=== PATIENT | male | born 1980 | race Caucasian/White ===

== ENCOUNTER 2017-05-11 23:29 | Emergency (ER) | payer SELFPAY ==
[2017-05-12 00:46] LABS: ABSOLUTE EOSINOPHILS # (AUTO) 0.2 10^3/uL (0.0-0.6); ABSOLUTE LYMPHOCYTES (AUTO) 2.4 10^3/uL (0.5-4.7); ABSOLUTE NEUT (AUTO) 9.3 10^3/uL (1.7-8.2); BASOPHILS % (AUTO) 0.4 % (0-2); EOSINOPHILS % (AUTO) 1.2 % (0-6); HEMATOCRIT 40.4 % (37.9-51.0); HEMOGLOBIN 13.6 g/dL (13.5-17.0); HGB HCT DIFFERENCE 0.4; LYMPHOCYTES % (AUTO) 18.4 % (13-45); MEAN CORPUSCULAR HEMOGLOBIN 30.1 pg (27.0-33.4); MEAN CORPUSCULAR HGB CONC 33.7 g/dL (32.0-36.0); MEAN CORPUSCULAR VOLUME 89 fl (80-97); MONOCYTES % (AUTO) 7.5 % (3-13); RED BLOOD COUNT 4.53 10^6/uL (4.35-5.55); RED CELL DISTRIBUTION WIDTH 13.4 % (11.5-14.0); SEGMENTED NEUTROPHILS % (AUTO) 72.5 % (42-78); WHITE BLOOD COUNT 12.9 10^3/uL (4.0-10.5)
[2017-05-12 01:02] LABS: ALANINE AMINOTRANSFERASE 24 U/L (21-72); ALBUMIN 4.1 g/dL (3.5-5.0); ALKALINE PHOSPHATASE 60 U/L (38-126); ANION GAP 12 (5-19); ASPARTATE AMINO TRANSFERASE 18 U/L (17-59); BILIRUBIN,DIRECT 0.3 mg/dL (0.0-0.4); BILIRUBIN,TOTAL 0.5 mg/dL (0.2-1.3); BLOOD UREA NITROGEN 14 mg/dL (7-20); CALCIUM 9.5 mg/dL (8.4-10.2); CARBON DIOXIDE 26 mmol/L (22-30); CHLORIDE 101 mmol/L (98-107); CREATININE RESULT 0.65 mg/dL (0.52-1.25); GLUCOSE 118 mg/dL (75-110); POTASSIUM 3.9 mmol/L (3.6-5.0); SODIUM 139.1 mmol/L (137-145); TOTAL PROTEIN 7.1 g/dL (6.3-8.2)
[2017-05-12] MEDS ORDERED: MORPHINE SULFATE IR 15 MG TABLET ONE (01:30)
[2017-05-12] MEDS ORDERED: ONDANSETRON 4 MG TAB.RAPDIS ONE (01:40)
--- NOTE | 2017-05-12 01:42 | RADIOLOGY REPORT (SQ) ---
EXAM DESCRIPTION: HAND RIGHT 3 VIEWS COMPLETED DATE/TIME: 05/12/2017 1:09 am REASON FOR STUDY: swelling/redness COMPARISON: None. EXAM PARAMETERS: NUMBER OF VIEWS: Three views. TECHNIQUE: AP, lateral and oblique radiographic images acquired of the right hand. LIMITATIONS: None. FINDINGS: MINERALIZATION: Normal. BONES: No acute fracture or dislocation. No worrisome bone lesions. JOINTS: No effusions. SOFT TISSUES: Moderate swelling and likely 0.2 cm dermal defect in an area of indicated symptomatolog y at the lateral aspect of the right 5th metacarpus. No bone or joint involvement. No radiopaque fo reign body. OTHER: No other significant finding. IMPRESSION: No acute bone or joint abnormality. Known soft tissue defect. TECHNICAL DOCUMENTATION: JOB ID: [id number] [employer]- All Rights Reserved
[2017-05-12] MEDS ORDERED: ONDANSETRON ODT 4 MG TAB (6 TAB/DSPK) PO PRN (02:02)
[2017-05-12] MEDS ORDERED: HYDROCODONE/ACETAMINOPHEN 5-325 MG 6 TAB/DSPK PO PRN (02:02)
[2017-05-12] MEDS ORDERED: MORPHINE SULFATE IR 15 MG TABLET PO ONE (02:02)
[2017-05-12] MEDS ORDERED: CEPHALEXIN 500 MG CAPSULE PO ONE (02:03)
[2017-05-12] MEDS ORDERED: DOXYCYCLINE HYCLATE 100 MG TABLET PO ONE (02:03)
--- NOTE | 2017-05-12 02:06 | ER Document Report ---
ED General - General Chief Complaint: Hand Swelling Stated Complaint: POSSIBLE RIGHT HAND INFECTION Time Seen by Provider: 05/12/17 02:01 Notes: Patient is a 36-year-old male without past medical history who presents with 4 days of progressively worsening erythema and pain to his right hand now spreading into his right forearm. 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 States that he became concerned today when he began to develop nausea, and generalized body aches and generalized fatigue. He has not seen his primary care doctor regarding today's concerns. He has not noted anything seems to improve or worsen his symptoms. He has no history of similar symptoms in the past. He has not had a fever at home. TRAVEL OUTSIDE OF THE [place] IN LAST 30 DAYS: No - Related Data Allergies/Adverse Reactions: codeine [Codeine] Allergy (Severe, Verified 12/13/15 14:51) hallucinating diphenhydramine HCl [From Benadryl] Adverse Reaction (Unknown, Verified 14:51) Hallucinations Past Medical History - General Information source: Patient - Social History Smoking Status: Current Every Day Smoker Frequency of alcohol use: None Drug Abuse: None Lives with: Spouse/Significant other Family History: Arthritis, CAD, Hyperlipidemia, Hypertension, Thyroid Disfunction Patient has suicidal ideation: No Patient has homicidal ideation: No Pulmonary Medical History: Reports: Hx Asthma Renal/ Medical History: Denies: Hx Peritoneal Dialysis Musculoskeltal Medical History: Reports Hx Arthritis, Reports Hx Musculoskeletal Deformity, Reports Hx Musculoskeletal Trauma Psychiatric Medical History: Reports: Hx Depression Traumatic Medical History: Reports: Hx Spine Fracture Past Surgical History: Reports: Hx Neurologic Surgery - NECK FUSION, Hx Orthopedic Surgery - C5 and 6 fusion - Immunizations Hx Diphtheria, Pertussis, Tetanus Vaccination: Yes Review of Systems - Review of Systems Notes: Constitutional: Negative for fever. HENT: Negative for sore throat. Eyes: Negative for visual changes. Cardiovascular: Negative for chest pain. Respiratory: Negative for shortness of breath. Gastrointestinal: Negative for abdominal pain, vomiting or diarrhea. Genitourinary: Negative for dysuria. Musculoskeletal: Negative for back pain. Skin: Positive for rash. Neurological: Negative for headaches, weakness or numbness. 10 point ROS negative except as marked above and in HPI. Physical Exam - Vital signs Vitals: Temp Pulse Resp BP Pulse Ox 97.5 F 68 22 H 121/66 94 05/11/17 23:41 05/11/17 23:41 05/11/17 23:41 05/11/17 23:41 05/11/17 23:41 Interpretation: Normal Notes: PHYSICAL EXAMINATION: GENERAL: Well-appearing, well-nourished and in no acute distress. HEAD: Atraumatic, normocephalic. EYES: Pupils equal round and reactive to light, extraocular movements intact, sclera anicteric, conjunctiva are normal. ENT: nares patent, oropharynx clear without exudates. Moist mucous membranes. NECK: Normal range of motion, supple without lymphadenopathy LUNGS: Breath sounds clear to auscultation bilaterally and equal. No wheezes rales or rhonchi. HEART: Regular rate and rhythm without murmurs ABDOMEN: Soft, nontender, normoactive bowel sounds. No guarding, no rebound. No masses appreciated. EXTREMITIES: Normal range of motion, no pitting or edema. No cyanosis. NEUROLOGICAL: No focal neurological deficits. Moves all extremities spontaneously and on command. PSYCH: Normal mood, normal affect. SKIN: Warm, Dry, normal turgor, there is a circular area of purulent drainage with surrounding erythema over the dorsal aspect of the right hand just superior to the thumb with spreading erythema to the level of the wrist. No axillary lymphadenopathy. Course - Re-evaluation Re-evalutation: 05/12/17 02:03 Patient presents with symptoms most consistent with an acute cellulitis. There was a small pustular component which was incised and drained with expression of approximately 0.25 mL's of purulent material. X-ray does not demonstrate any evidence of retained foreign bodies the area. Vitals within normal limits. Patient does not meet sepsis criteria is overall very well in appearance. Exam and history are not consistent with DVT. Patient will be started on coverage for both staph and strep as well as vibrio species given that wound was likely contaminated with salt water. At this time will discharge with return precautions and follow-up recommendations. Verbal discharge instructions given a the bedside and opportunity for questions given. Medication warnings reviewed. Patient is in agreement with this plan and has verbalized understanding of return precautions and the need for primary care follow-up in the next 24-72 hours. - Vital Signs Vital signs: Temp Pulse Resp BP Pulse Ox 97.8 F 80 20 120/70 96 05/12/17 02:20 05/12/17 02:20 05/12/17 02:20 05/12/17 02:20 05/12/17 02:20 - Laboratory Result Diagrams: 05/12/17 00:35 05/12/17 00:35 Laboratory results interpreted by me: 05/12/17 05/12/17 00:35 00:35 WBC 12.9 H Absolute Neutrophils 9.3 H Glucose 118 H - Diagnostic Test Radiology reviewed: Image reviewed, Reports reviewed Radiology results interpreted by me: 05/12/17 02:04 Right hand x-ray: No retained foreign body Procedures - Incision and Drainage Right Hand Type: Simple Anesthetic type: 1% Lidocaine mL's of anesthetic: 1 Blade size: 11 I&D procedure: Betadine prep applied Incision Method: Incision made by scalpel Amount/type of drainage: 0.25 ml purulent material Discharge - Discharge Clinical Impression: Abscess of right hand Cellulitis Qualifiers: Site of cellulitis: extremity Site of cellulitis of extremity: upper extremity Laterality: right Qualified Code(s): L03.113 - Cellulitis of right upper limb Condition: Good Disposition: HOME, SELF-CARE Additional Instructions: The rash is likely due to infection of your skin. You need to take the antibiotics as prescribed. Do not stop even if the rash goes away until you have completed all the antibiotics. The area of redness was traced out here in the emergency department with a marking pen. You need to return to emergency department if the redness spreads outside of this area by more than 2 cm in any direction. You should also return if you develop fevers with temperature greater than 101, persistent vomiting, worsening pain, or have any other symptoms that are concerning to you. For your pain: Take ibuprofen 600 mg and acetaminophen 1000 mg every 6 hours together as needed for pain. If this does not control your pain you may take 15 mg of oral morphine every 4 hours as needed. Please be very careful about using the oral morphine and only use this for severe pain. Prescriptions: RX: Morphine Sulfate [Morphine Ir 15 mg Tablet] 15 mg PO Q4HP PRN #12 tablet PRN Reason: Cephalexin Monohydrate [Keflex 500 mg Capsule] 500 mg PO QID #40 capsule RX: Doxycycline Hyclate 100 mg PO BID #20 capsule Forms: Return to Work
[2017-05-12 02:35] VITALS: BP 120/70
== END 2017-05-12 02:23 | disposition home or self-care (01) ==
LOC: ER 23:29
PROC: 0H9FXZZ Drainage of Right Hand Skin, External Approach (ICD-10-PCS; principal; 2017-05-11)
DX: L03.113 Cellulitis of right upper limb (principal); L02.511 Cutaneous abscess of right hand; M79.89 Other specified soft tissue disorders; M79.631 Pain in right forearm; R11.0 Nausea; R52 Pain, unspecified; R53.83 Other fatigue; F17.200 Nicotine dependence, unspecified, uncomplicated
CPT/HCPCS: 99284; 36415; 85025; 80053; 73130; 10060; S0119

== ENCOUNTER 2017-05-13 00:53 | Emergency (ER) | payer SELFPAY ==
[2017-05-13] MEDS ORDERED: MORPHINE SULFATE 10 MG/ML INJ IV PRN (01:48)
[2017-05-13] MEDS ORDERED: HYDROMORPHONE HCL INJ/PF 2 MG/ML AMPULE IM ONE (02:28)
--- NOTE | 2017-05-13 02:33 | ER Document Report ---
ED General - General Chief Complaint: Hand Swelling Stated Complaint: HAND PAIN Time Seen by Provider: 05/13/17 01:48 Notes: Patient is a 36-year-old male without past medical history who was seen yesterday in the emergency department by me again presents with worsening pain to his right hand and increased purulent drainage from the area. He continues to deny fever, nausea, vomiting or constitutional symptoms. Does describe the pain there is a severe, constant throbbing pain. He has been trying Tylenol, ibuprofen and oral morphine without any improvement of his pain. He has been taking antibiotics as directed. TRAVEL OUTSIDE OF THE [place] IN LAST 30 DAYS: No - Related Data Allergies/Adverse Reactions: No Known Allergies Allergy (Verified 05/13/17 02:22) Past Medical History - General Information source: Patient - Social History Smoking Status: Current Every Day Smoker Chew tobacco use (# tins/day): No Frequency of alcohol use: None Drug Abuse: None Lives with: Spouse/Significant other Family History: Arthritis, CAD, Hyperlipidemia, Hypertension, Thyroid Disfunction Patient has suicidal ideation: No Patient has homicidal ideation: No Pulmonary Medical History: Reports: Hx Asthma Renal/ Medical History: Denies: Hx Peritoneal Dialysis Musculoskeltal Medical History: Reports Hx Arthritis, Reports Hx Musculoskeletal Deformity, Reports Hx Musculoskeletal Trauma Psychiatric Medical History: Reports: Hx Depression Traumatic Medical History: Reports: Hx Spine Fracture Past Surgical History: Reports: Hx Neurologic Surgery - NECK FUSION, Hx Orthopedic Surgery - C5 and 6 fusion - Immunizations Hx Diphtheria, Pertussis, Tetanus Vaccination: Yes Review of Systems - Review of Systems Notes: Constitutional: Negative for fever. HENT: Negative for sore throat. Eyes: Negative for visual changes. Cardiovascular: Negative for chest pain. Respiratory: Negative for shortness of breath. Gastrointestinal: Negative for abdominal pain, vomiting or diarrhea. Genitourinary: Negative for dysuria. Musculoskeletal: Negative for back pain. Skin: Positive for erythema and purulent drainage from the right hand Neurological: Negative for headaches, weakness or numbness. 10 point ROS negative except as marked above and in HPI. Physical Exam - Vital signs Vitals: Temp Pulse Resp BP Pulse Ox 97.7 F 73 20 139/72 H 97 05/13/17 00:58 05/13/17 00:58 05/13/17 00:58 05/13/17 00:58 05/13/17 00:58 Interpretation: Normal Notes: PHYSICAL EXAMINATION: GENERAL: Well-appearing, well-nourished and in no acute distress. HEAD: Atraumatic, normocephalic. EYES: Pupils equal round and reactive to light, extraocular movements intact, sclera anicteric, conjunctiva are normal. ENT: nares patent, oropharynx clear without exudates. Moist mucous membranes. NECK: Normal range of motion, supple without lymphadenopathy LUNGS: Breath sounds clear to auscultation bilaterally and equal. No wheezes rales or rhonchi. HEART: Regular rate and rhythm without murmurs ABDOMEN: Soft, nontender, normoactive bowel sounds. No guarding, no rebound. No masses appreciated. EXTREMITIES: There is edema and erythema of the right ulnar aspect of the dorsal surface of the hand. Prior excision and drainage site is present with a scant amount of purulent drainage. Streaking on the forearm is improved relative to yesterday NEUROLOGICAL: No focal neurological deficits. Moves all extremities spontaneously and on command. PSYCH: Normal mood, normal affect. SKIN: Warm, Dry, normal turgor, cellulitis as above Course - Re-evaluation Re-evalutation: 05/13/17 02:29 Patient returns today with ongoing swelling and worsening pain of the hand after an incision and drainage yesterday. He does not have any appreciable worsening of erythema on examination and actually the streaking up his proximal forearm is improved relative to yesterday. His vitals remained within normal limits without tachycardia or fever. No evidence of flexor tenosynovitis on exam. The area was again reexcised this time with removal of a skin flap from the area to expose an approximately 1 cm opening. Approximately 1 mL of purulent drainage was expressed. Bedside ultrasound was used and I could not identify any additional pockets of fluid. Patient has been taking antibiotics as directed but is only had a total of 2 doses of doxycycline and 4 doses of cephalexin. Primary concern at this time is ongoing pain. Patient states that he has had no relief whatsoever from oral morphine tablets. Will transition to oral Dilaudid tablets. I will provide the patient with a personal cell phone number and have asked him to contact me tomorrow afternoon for status update. I have asked him to return to the emergency department immediately prior to that should he have any worsening of his symptoms. - Vital Signs Vital signs: Temp Pulse Resp BP Pulse Ox 97.7 F 73 20 139/72 H 97 05/13/17 00:58 05/13/17 00:58 05/13/17 00:58 05/13/17 00:58 05/13/17 00:58 Procedures - Incision and Drainage Right Hand Time completed: 02:40 Type: Simple Anesthetic type: 1% Lidocaine mL's of anesthetic: 2 Blade size: 11 I&D procedure: Betadine prep applied Incision Method: Incision made by scalpel Amount/type of drainage: 2 cc of purulent drainage Discharge - Discharge Clinical Impression: Abscess of right hand Cellulitis Qualifiers: Site of cellulitis: extremity Site of cellulitis of extremity: upper extremity Laterality: right Qualified Code(s): L03.113 - Cellulitis of right upper limb Condition: Good Disposition: HOME, SELF-CARE Additional Instructions: Continue to take the antibiotics as prescribed. Please contact me for any additional concerns that you may have on my cell phone [phone]. Text messages are the easiest way to get ahold of me. Please return to the emergency department sooner if you develop worsening of the spreading redness on the arm, you have worsening of your pain, you develop a fever greater than 101F, or you have any other symptoms that are worrisome to you. Prescriptions: Hydromorphone HCl [Dilaudid 2 mg Tablet] 2 - 4 mg PO Q4HP PRN #20 tablet PRN Reason:
[2017-05-13 02:54] VITALS: BP 121/68
== END 2017-05-13 02:45 | disposition home or self-care (01) ==
LOC: ER 00:53
PROC: 0H9FXZZ Drainage of Right Hand Skin, External Approach (ICD-10-PCS; principal; 2017-05-13)
DX: L03.113 Cellulitis of right upper limb (principal); F17.200 Nicotine dependence, unspecified, uncomplicated; Z98.1 Arthrodesis status
CPT/HCPCS: 99282; 96372; 10060; J1170; A6266

== ENCOUNTER 2018-07-23 13:28 | Emergency (ER) | payer SELFPAY ==
[2018-07-23 13:55] VITALS: BP 124/75
[2018-07-23] MEDS ORDERED: LIDOCAINE 5% (700 MG) TRANSDERMAL ADH..PATCH TP ONE (15:22)
[2018-07-23] MEDS ORDERED: OXYCODONE-ACETAMINOPHEN 5-325 MG TABLET PO ONE (15:23)
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
== END 2018-07-23 15:30 | disposition home or self-care (01) ==
LOC: ER 13:28
DX: M54.2 Cervicalgia (principal); M25.512 Pain in left shoulder; Z98.1 Arthrodesis status; Z87.81 Personal history of (healed) traumatic fracture; J45.909 Unspecified asthma, uncomplicated
CPT/HCPCS: 99283

== ENCOUNTER 2018-08-12 22:49 | Emergency (ER) | payer SELFPAY ==
[2018-08-12] MEDS ORDERED: MORPHINE SULFATE 10 MG/ML INJ IM ONE (23:20)
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
[2018-08-13] MEDS ORDERED: HYDROCODONE/ACETAMINOPHEN 5-325 MG (6 TAB/ER DISP) PO PRN (00:14)
[2018-08-13] MEDS ORDERED: DOXYCYCLINE HYCLATE 100 MG TABLET PO ONE (00:14)
[2018-08-13 01:19] VITALS: BP 132/78
== END 2018-08-13 01:17 | disposition home or self-care (01) ==
LOC: ER 22:49
DX: S91.312A Laceration without foreign body, left foot, initial encounter (principal); S91.311A Laceration without foreign body, right foot, initial encounter; X50.9XXA Other and unspecified overexertion or strenuous movements or postures, initial encounter; J45.909 Unspecified asthma, uncomplicated
CPT/HCPCS: 99283; 96372; 73620; J2270

== ENCOUNTER 2018-09-07 20:33 | Emergency (ER) | payer SELFPAY ==
[2018-09-07] MEDS ORDERED: HYDROMORPHONE HCL INJ/PF 2 MG/ML AMPULE IM ONE (22:45)
[2018-09-07] MEDS ORDERED: LIDOCAINE 5% (700 MG) TRANSDERMAL ADH..PATCH TP ONE (22:46)
[2018-09-07] MEDS ORDERED: KETOROLAC TROMETHAMINE 60 MG/2 ML SDV IM ONE (22:46)
[2018-09-07] MEDS ORDERED: MORPHINE SULFATE IR 15 MG TABLET PO ONE (22:48)
--- NOTE | 2018-09-07 22:50 | ER Document Report ---
ED General - General Chief Complaint: Neck Pain < 24hrs old Stated Complaint: NECK PAIN Time Seen by Provider: 09/07/18 21:55 Notes: Patient is a 38-year-old male without chronic medical problems who presents with severe neck pain that has been ongoing for the past 2 months but worsened within the last 4 hours. He describes this as a severe, stabbing, aching, spasming pain to the bilateral neck radiating into the trapezius muscles bilaterally. He states that he has been trying anti-inflammatories and Tylenol at home without any improvement. He has been following with a doctor regarding this neck issue but states that the pain became much worse tonight after he was working on his boat. He denies any associated weakness, numbness, loss of sensation, headache, fever or constitutional symptoms. Denies any direct injury to the neck at any point although he does report a history of prior surgical fixation in his neck. TRAVEL OUTSIDE OF THE [place] IN LAST 30 DAYS: No - Related Data Allergies/Adverse Reactions: No Known Allergies Allergy (Verified 05/13/17 02:22) Past Medical History - General Information source: Patient - Social History Smoking Status: Current Every Day Smoker Frequency of alcohol use: None Drug Abuse: None Lives with: Spouse/Significant other Family History: Arthritis, CAD, Hyperlipidemia, Hypertension, Thyroid Disfunction Patient has suicidal ideation: No Patient has homicidal ideation: No Pulmonary Medical History: Reports: Hx Asthma Renal/ Medical History: Denies: Hx Peritoneal Dialysis Musculoskeletal Medical History: Reports Hx Arthritis, Reports Hx Musculoskeletal Deformity, Reports Hx Musculoskeletal Trauma Psychiatric Medical History: Reports: Hx Depression Traumatic Medical History: Reports: Hx Spine Fracture Past Surgical History: Reports: Hx Neurologic Surgery - NECK FUSION, Hx Orthopedic Surgery - C5 and 6 fusion - Immunizations Hx Diphtheria, Pertussis, Tetanus Vaccination: Yes Review of Systems - Review of Systems Notes: Constitutional: Negative for fever. HENT: Negative for sore throat. Eyes: Negative for visual changes. Cardiovascular: Negative for chest pain. Respiratory: Negative for shortness of breath. Gastrointestinal: Negative for abdominal pain, vomiting or diarrhea. Genitourinary: Negative for dysuria. Musculoskeletal: Positive for neck pain Skin: Negative for rash. Neurological: Negative for headaches, weakness or numbness. 10 point ROS negative except as marked above and in HPI. Physical Exam - Vital signs Vitals: Temp Pulse Resp BP Pulse Ox 97.7 F 92 20 142/74 H 98 09/07/18 20:41 09/07/18 20:41 09/07/18 20:41 09/07/18 20:41 09/07/18 20:41 Interpretation: Normal Notes: PHYSICAL EXAMINATION: GENERAL: Appears to be in significant pain but in no distress HEAD: Atraumatic, normocephalic. EYES: Pupils equal round and reactive to light, extraocular movements intact, sclera anicteric, conjunctiva are normal. ENT: nares patent, oropharynx clear without exudates. Moist mucous membranes. NECK: Head held in flexion although can obtain full range of motion with pain. No midline cervical spine tenderness, step-offs or deformities. Pain on palpation of the sternocleidomastoids on both sides. LUNGS: Breath sounds clear to auscultation bilaterally and equal. No wheezes rales or rhonchi. HEART: Regular rate and rhythm without murmurs ABDOMEN: Soft, nontender, normoactive bowel sounds. No guarding, no rebound. No masses appreciated. EXTREMITIES: Normal range of motion, no pitting or edema. No cyanosis. NEUROLOGICAL: No focal neurological deficits. Moves all extremities spontaneously and on command. RMU motor and sensory distribution intact bilaterally. 5 out of 5 biceps and triceps strength bilaterally. PSYCH: Normal mood, normal affect. SKIN: Warm, Dry, normal turgor, no rashes or lesions noted. Course - Re-evaluation Re-evalutation: 09/07/18 22:48 Patient presents with bilateral sternocleidomastoids spasms with associated spasms of the trapezius muscles, unable to fully lift his head secondary to pain. He has no midline cervical spine tenderness, step-offs or deformities. RMU motor and sensory distribution is intact bilaterally. No acute traumatic event to the area, he has been having chronic pain to the area for the past 2-3 months, followed by a international specialist although there are currently determining whether or not his pain is related to a possible surgical need. The patient has no neurologic deficits on examination. Full 5 out of 5 biceps and triceps strength. Patient has had relief of pain after receiving IM hydromorphone and Toradol. At this time will discharge with return precautions and follow-up recommendations. Verbal discharge instructions given a the bedside and opportunity for questions given. Medication warnings reviewed. Patient is in agreement with this plan and has verbalized understanding of return precautions and the need for primary care follow-up in the next 24-72 hours. - Vital Signs Vital signs: Temp Pulse Resp BP Pulse Ox 97.7 F 77 18 138/72 H 99 09/07/18 20:41 09/08/18 00:17 09/08/18 00:17 09/08/18 00:17 09/08/18 00:17 Discharge - Discharge Clinical Impression: Neck pain, Neck muscle spasm Condition: Good Disposition: HOME, SELF-CARE Additional Instructions: Your pain is related to spasm and inflammation of the muscles in your neck likely related to your prior cervical spine injuries. Your neurologic exam is normal and does not suggest an acute impingement on your spine. For your pain : Take ibuprofen 600 mg and acetaminophen 1000 mg every 6 hours together as needed for pain. If this does not control your pain you may take 15 mg of oral morphine every 4 hours as needed. Please be very careful about using the oral morphine and only use this for severe pain. In addition to this, purchased the product that is sold [id number] cold Aspercreme with lidocaine. Apply to the affected area per bottle instructions. You should also apply heat to the area regularly using an electric heating plant pad. Return to the emergency department immediately if you develop weakness, loss of sensation, chest pain, shortness of breath, have worsening of your symptoms, or any other symptoms that are worrisome to you. Prescriptions: Morphine Sulfate [Morphine Ir 15 mg Tablet] 15 mg PO Q6HP PRN #12 tablet PRN Reason:
[2018-09-08 00:19] VITALS: BP 138/72
== END 2018-09-08 00:17 | disposition home or self-care (01) ==
LOC: ER 20:33
DX: M54.2 Cervicalgia (principal); M62.838 Other muscle spasm; F17.200 Nicotine dependence, unspecified, uncomplicated; J45.909 Unspecified asthma, uncomplicated
CPT/HCPCS: 99283; 96372; J1885; J1170

== ENCOUNTER 2018-10-09 02:53 | Emergency (ER) | payer SELFPAY ==
[2018-10-09] MEDS ORDERED: LIDOCAINE 4% TRANSPARENT DRESSING 5 GM KIT TP ONE (03:42)
[2018-10-09] MEDS ORDERED: HYDROMORPHONE HCL INJ/PF 2 MG/ML AMPULE IM ONE (03:42)
[2018-10-09] MEDS ORDERED: CLINDAMYCIN HCL 150 MG CAPSULE PO ONE (03:43)
[2018-10-09] MEDS ORDERED: LIDOCAINE 1% INJ-PF (10 MG/ML) 30 ML SDV INJ ONE (03:43)
--- NOTE | 2018-10-09 04:03 | ER Document Report ---
ED General - General Chief Complaint: Abscess Stated Complaint: ABSCESS Time Seen by Provider: 10/09/18 03:38 Notes: Patient is a 38-year-old male presents with complaint of an abscess over the anterior neck. Patient is a started a small pimple. It started over the area where he shaves. It then quickly grew in size over the last 2-3 days. Therefore is come to the ER. Is not taking medications for. He denies any fevers. No difficulty breathing or swallowing. TRAVEL OUTSIDE OF THE [place] IN LAST 30 DAYS: No - Related Data Allergies/Adverse Reactions: No Known Allergies Allergy (Verified 05/13/17 02:22) Past Medical History - Social History Smoking Status: Current Every Day Smoker Frequency of alcohol use: None Drug Abuse: None Family History: Arthritis, CAD, Hyperlipidemia, Hypertension, Thyroid Disfunction Pulmonary Medical History: Reports: Hx Asthma Renal/ Medical History: Denies: Hx Peritoneal Dialysis Musculoskeletal Medical History: Reports Hx Arthritis, Reports Hx Musculoskeletal Deformity, Reports Hx Musculoskeletal Trauma Psychiatric Medical History: Reports: Hx Depression Traumatic Medical History: Reports: Hx Spine Fracture Past Surgical History: Reports: Hx Neurologic Surgery - NECK FUSION, Hx Orthopedic Surgery - C5 and 6 fusion - Immunizations Hx Diphtheria, Pertussis, Tetanus Vaccination: Yes Review of Systems - Review of Systems Notes: My Normal Review Basic REVIEW OF SYSTEMS: CONSTITUTIONAL : Denies fever, chills, or sweats. Denies recent illness. EENT: Abscess over anterior neck. RESPIRATORY: Denies cough, cold, or chest congestion. Denies shortness of breath, difficulty breathing, or wheezing. SKIN: Abscess HEMATOLOGIC : Denies easy bruising or bleeding. ALL OTHER SYSTEMS REVIEWED AND NEGATIVE. Physical Exam - Vital signs Vitals: Temp Pulse Resp BP Pulse Ox 98.3 F 71 14 117/66 97 10/09/18 03:18 10/09/18 03:18 10/09/18 03:18 10/09/18 03:18 10/09/18 03:18 - Notes Notes: General Appearance: Well nourished, alert, cooperative, no acute distress, no obvious discomfort. Vitals: reviewed, See vital signs table. Head: no swelling or tenderness to the head Eyes: PERRL, EOMI, Conjuctiva clear Mouth: No decreasd moisture Throat: No tonsillar inflammation, No airway obstruction, No lymphadenopathy Neck: Patient has a 3-4 cm subcutaneous abscess over the anterior neck just below the chin. This is over the area where he shaves. Abscess looks superficial into the subcutaneous tissue. No active drainage at this time. Lungs: No wheezing, No rales, No rhonci, No accessory muscle use, good air exchange bilaterally. Heart: Normal rate, Regular rythm, No murmur, no rub Skin: warm, dry, appropriate color, abscess Neuro: speech clear, oriented x 3, normal affect, responds appropriately to questions. Course - Re-evaluation Re-evalutation: 10/09/18 06:37 Performed a bedside ultrasound to find the pocket of purulence. I incised this area and was able to drain pus. I then broke up loculations. I placed iodoform packing. I then placed a Xeroform gauze over the area and placed a lightly wrapped Kerlix wrap around the area. Informed patient to loosen the wrap anytime if he feels as tight being that is around his neck. I cannot get any type of gauze or anything to stay because of the position of the wound on the neck without actually wrapping around. Again this was wrapped very loosely and only held with one piece of tape so the patient could easily remove it without any difficulty. Patient to return to the ER in 1-2 days for close reevaluation. He is to return to ER immediately if he has any redness or swelling to his neck that is increasing or if he feels he is worsening any way. Patient to return if he has fevers. Patient agrees with plan and will be discharged home. Dictation of this chart was performed using voice recognition software; therefore, there may be some unintended grammatical errors. - Vital Signs Vital signs: Temp Pulse Resp BP Pulse Ox 97.5 F 67 18 123/69 99 10/09/18 05:20 10/09/18 05:20 10/09/18 05:20 10/09/18 05:20 10/09/18 05:20 Procedures - Incision and Drainage anterior neck Anesthetic type: 1% Lidocaine mL's of anesthetic: 3 I&D procedure: Iodoform packing placed Incision Method: Incision made by scalpel Amount/type of drainage: 4mls of blood tinged purulent drainage Notes: 10/09/18 06:[address] over abcsess before incision Discharge - Discharge Clinical Impression: Abscess Condition: Good Disposition: HOME, SELF-CARE Additional Instructions: Please return to the ER in 1-2 days for recheck of your wound and removal of the packing. Please remove the gauze or wrap on your neck if you feel it is tight in any way, you have increasing swelling, fevers, or have increasing pain. Return to the ER immediately if you have spreading rednes on the neck, increasing swelling, fevers, or feel unwell. Please be aware that [place] does have Tylenol (acetaminophen) in it. Please make sure you do not take more than 4000 mg of acetaminophen a day. Do not drive or care for children after you have taken this medication they will make you sleepy and sometimes impair judgment. Prescriptions: Clindamycin HCl [Cleocin 150 mg Capsule] 300 mg PO Q6 #56 capsule Hydrocodone/Acetaminophen [[place] 5-325 mg Tablet] 1 tab PO Q4 PRN #8 tablet PRN Reason: For Breakthrough Pain
[2018-10-09] MEDS ORDERED: HYDROCODONE/ACETAMINOPHEN 5-325 MG TABLET PO ONE (04:57)
[2018-10-09 05:25] VITALS: BP 123/69
== END 2018-10-09 05:25 | disposition home or self-care (01) ==
LOC: ER 02:53
PROC: 0H94XZZ Drainage of Neck Skin, External Approach (ICD-10-PCS; principal; 2018-10-09)
DX: L02.11 Cutaneous abscess of neck (principal); F17.200 Nicotine dependence, unspecified, uncomplicated; J45.909 Unspecified asthma, uncomplicated
CPT/HCPCS: 99283; 96372; 10060; A6266; J3490 ×2; J1170

== ENCOUNTER 2018-10-11 00:50 | Emergency (ER) | payer SELFPAY ==
[2018-10-11 00:56] VITALS: BP 133/75
[2018-10-11] MEDS ORDERED: LIDOCAINE 2%/EPINEPHRINE INJ 20 ML VIAL INJ ONE (01:07)
[2018-10-11] MEDS ORDERED: VANCOMYCIN HCL INJ 1000 MG VIAL IV ONE (01:24)
[2018-10-11] MEDS ORDERED: CEFTRIAXONE INJ 1000 MG VIAL IV ONE (01:24)
--- NOTE | 2018-10-11 01:26 | ER Document Report ---
ED General - General Chief Complaint: Abscess Stated Complaint: POSSIBLE ABSCESS Time Seen by Provider: 10/11/18 01:01 TRAVEL OUTSIDE OF THE [place] IN LAST 30 DAYS: No - Related Data Allergies/Adverse Reactions: No Known Allergies Allergy (Verified 05/13/17 02:22) Past Medical History - Social History Smoking Status: Unknown if Ever Smoked Family History: Arthritis, CAD, Hyperlipidemia, Hypertension, Thyroid Disfunction Patient has suicidal ideation: No Patient has homicidal ideation: No Pulmonary Medical History: Reports: Hx Asthma Renal/ Medical History: Denies: Hx Peritoneal Dialysis Musculoskeletal Medical History: Reports Hx Arthritis, Reports Hx Musculoskeletal Deformity, Reports Hx Musculoskeletal Trauma Psychiatric Medical History: Reports: Hx Depression Traumatic Medical History: Reports: Hx Spine Fracture Past Surgical History: Reports: Hx Neurologic Surgery - NECK FUSION, Hx Orthopedic Surgery - C5 and 6 fusion - Immunizations Hx Diphtheria, Pertussis, Tetanus Vaccination: Yes Physical Exam - Vital signs Vitals: Temp Pulse Resp BP Pulse Ox 98.4 F 77 16 133/75 H 95 10/11/18 00:54 10/11/18 00:54 10/11/18 00:54 10/11/18 00:54 10/11/18 00:54 Course - Re-evaluation Re-evalutation: 10/11/18 01:25 I did a bedside ultrasound. Bedside ultrasound shows what appears to be more just phlegmonous changes however it is still feels somewhat fluctuant on exam therefore went forward with needle aspiration. Needle aspiration did not reveal any pus drainage. We will obtain a CT scan of the patient's neck to make sure there is no further underlying deep abscess. 10/11/18 03:09 Scan did not show any fluid collection or abscess. Patient did receive a dose of vancomycin and Rocephin here. He said he was able to get filled have his antibiotics which will get him through tomorrow and then he will have money to fill the second half after tomorrow. I will send him with some pain medicine. Being that he still has some amount of phlegmonous swollen tissue in the anterior neck I did call and speak with her ENT physician, Dr. Burciaga, who said that he would follow-up in the office. I encourage patient to call the office for follow-up. I informed him that if he is unable to follow-up in office then he can return to ER and we will reevaluate him here. Patient agrees with plan will be discharged home. Patient to return to ER immediately if he has difficulty breathing, difficulty swallowing, spreading redness, or fevers. Dictation of this chart was performed using voice recognition software; therefore, there may be some unintended grammatical errors. - Vital Signs Vital signs: Temp Pulse Resp BP Pulse Ox 98.4 F 77 16 133/75 H 95 10/11/18 00:54 10/11/18 00:54 10/11/18 00:54 10/11/18 00:54 10/11/18 00:54 - Laboratory Result Diagrams: 10/11/18 01:35 10/11/18 01:35 Laboratory results interpreted by me: 10/11/18 10/11/18 01:35 01:35 RBC 4.30 L Hgb 13.3 L Carbon Dioxide 31 H Glucose 114 H Discharge - Discharge Clinical Impression: Abscess Condition: Good Disposition: HOME, SELF-CARE Additional Instructions: Your CT scan did not show an abscess, but you do have the continued area of swelling on the neck therefore I want you to follow up with the ENT physician. I spoke with Dr. Burciaga who requests you call his office for a close follow up appointment. Please call his office and tell him you are being referred from the ER after the ER physician spoke with Dr. Burciaga. Please return to the ER for reevaluation in 3 days if you are unable to follow up with Dr. Burciaga. Please return to the ER immediately if you develop fevers, spreading redness, worsening swelling, or feel like you are worsening in any way. Continue the antibiotics as prescribed. Please be aware that [place] does have Tylenol ( acetaminophen) in it. Please make sure you do not take more than 4000 mg of acetaminophen a day. Do not drive or care for children after you have taken this medication they will make you sleepy and sometimes impair judgment. Referrals: LEANA BURCIAGA MD [ACTIVE STAFF] - 10/13/18 (mathieu this morning to make a close follow up appointment.)
[2018-10-11] MEDS ORDERED: HYDROMORPHONE HCL INJ/PF 2 MG/ML AMPULE IV ONE (01:46)
[2018-10-11 01:49] LABS: ABSOLUTE EOSINOPHILS # (AUTO) 0.1 10^3/uL (0.0-0.6); ABSOLUTE LYMPHOCYTES (AUTO) 2.7 10^3/uL (0.5-4.7); ABSOLUTE MONOCYTES (AUTO) 0.8 10^3/uL (0.1-1.4); ABSOLUTE NEUT (AUTO) 3.9 10^3/uL (1.7-8.2); BASOPHILS % (AUTO) 0.3 % (0-2); EOSINOPHILS % (AUTO) 1.9 % (0-6); HEMATOCRIT 38.4 % (37.9-51.0); HEMOGLOBIN 13.3 g/dL (13.5-17.0); LYMPHOCYTES % (AUTO) 35.9 % (13-45); MEAN CORPUSCULAR HGB CONC 34.6 g/dL (32.0-36.0); MEAN CORPUSCULAR VOLUME 89 fl (80-97); MONOCYTES % (AUTO) 10.5 % (3-13); PLATELET COUNT 190 10^3/uL (150-450); RED CELL DISTRIBUTION WIDTH 13.4 % (11.5-14.0); SEGMENTED NEUTROPHILS % (AUTO) 51.4 % (42-78); TOTAL CELLS COUNTED % (AUTO) 100 %; WHITE BLOOD COUNT 7.6 10^3/uL (4.0-10.5)
[2018-10-11 01:59] LABS: ANION GAP 9 (5-19); BLOOD UREA NITROGEN 13 mg/dL (7-20); CALCIUM 9.5 mg/dL (8.4-10.2); CARBON DIOXIDE 31 mmol/L (22-30); CHLORIDE 101 mmol/L (98-107); GLUCOSE 114 mg/dL (75-110); POTASSIUM 4.1 mmol/L (3.6-5.0)
--- NOTE | 2018-10-11 02:24 | RADIOLOGY REPORT (SQ) ---
EXAM DESCRIPTION: CT NECK CHEST WITH IV CONTRAST COMPLETED DATE/TME: 10/11/2018 01:24 CLINICAL HISTORY: 38 years, Male, abscess vs. flegmon anterior neck. incised 2 days COMPARISON: None. TECHNIQUE: 298 Images stored on PACS. All CT scanners at this facility use dose modulation, iterative reconstruction, and/or weight based dosing when appropriate to reduce radiation dose to as low as reasonably achievable (ALARA). [facility]: Dose Right [facility]: CareDose [facility]: Dose Right [facility]: Teradose 4D [facility]: [employer] LIMITATIONS: None. FINDINGS: Limited evaluation of brain parenchyma is unremarkable. The paranasal sinuses and mastoid air cells are unremarkable. The submandibular and parotid glands are unremarkable bilaterally. The epiglottis and aryepiglottic folds are normal. The prevertebral soft tissues are normal. The airway is widely patent. Limited evaluation of the lung apices is unremarkable. Minor subcutaneous inflammatory changes are noted in the submandibular region with several nonspecific, nonenlarged submental and submandibular chain lymph nodes noted. No discrete or defined abscess or enhancing abnormality. IMPRESSION: Minor subcutaneous inflammatory changes in the submandibular/submental region with what are likely a few reactive adjacent lymph nodes. No discrete or defined abscess. The airway is widely patent. TECHNICAL DOCUMENTATION: Quality ID # [id number]: Final reports with documentation of one or more dose reduction techniques (e.g., Automated exposure control, adjustment of the mA and/or kV according to patient size, use of iterative reconstruction technique) 2010 [employer]- All Rights Reserved
[2018-10-11] MEDS ORDERED: HYDROCODONE/ACETAMINOPHEN 5-325 MG (6 TAB/ER DISP) PO PRN (03:08)
== END 2018-10-11 03:40 | disposition home or self-care (01) ==
LOC: ER 00:50
DX: L02.91 Cutaneous abscess, unspecified (principal); J45.909 Unspecified asthma, uncomplicated
CPT/HCPCS: 99284; 96375; 96365; 96367; 36415; 85025; 80048; 70491; 10160; J3490; J1170; J0696; J3370

== ENCOUNTER 2018-11-27 09:30 | Emergency (ER) | payer SELFPAY ==
[2018-11-27 09:37] VITALS: BP 124/74
--- NOTE | 2018-11-27 10:06 | ER Document Report ---
ED Skin Rash/Insect Bite/Abscs - General Chief Complaint: Abscess Stated Complaint: ABSCESS Time Seen by Provider: 11/27/18 09:51 Mode of Arrival: Ambulatory Information source: Patient Notes: 38-year-old male presents the emergency department with complaints of abscess to the right chin. He states that it has been there for 2 days. Patient states that he was in the emergency department a month ago for an abscess to his neck. He states that the initial abscess was incised and drained. It then began getting larger so he came back to the emergency department again. No pus was able to be aspirated at that time. He was discharged home on clindamycin and told to follow-up with ENT. Patient states that he finished the antibiotics and this helped with the abscess. He states that he did not follow-up with ENT. He states that he has had multiple ingrown hairs on his neck that resulted in smaller abscesses over the last few weeks. He states that he usually "pops" the abscess and it resolves. Patient admits to trying to express purulence from his current abscess. He was not able to get any fluid out. He denies a history of MRSA. He denies dental pain, shortness of breath, throat swelling, pain with opening his mouth. TRAVEL OUTSIDE OF THE [place] IN LAST 30 DAYS: No - HPI Patient complains to provider of: Skin rash/lesion Onset: Other - 2 days Onset/Duration: Gradual Quality of pain: Dull Severity: Mild Skin Character: Abscess Skin Temperature: Warm Quality of rash: Painful Identify cause: No Exacerbated by: Denies Relieved by: Denies Similar symptoms previously: Yes Recently seen / treated by doctor: No - Related Data Allergies/Adverse Reactions: No Known Allergies Allergy (Verified 11/27/18 09:32) Past Medical History - General Information source: Patient - Social History Smoking Status: Current Every Day Smoker Chew tobacco use (# tins/day): No Frequency of alcohol use: None Drug Abuse: None Family History: Arthritis, CAD, Hyperlipidemia, Hypertension, Thyroid Disfunction Patient has suicidal ideation: No Patient has homicidal ideation: No Pulmonary Medical History: Reports: Hx Asthma Renal/ Medical History: Denies: Hx Peritoneal Dialysis Musculoskeletal Medical History: Reports Hx Arthritis, Reports Hx Muscu loskeletal Deformity, Reports Hx Musculoskeletal Trauma Psychiatric Medical History: Reports: Hx Depression Traumatic Medical History: Reports: Hx Spine Fracture Past Surgical History: Reports: Hx Neurologic Surgery - NECK FUSION, Hx Orthopedic Surgery - C5 and 6 fusion - Immunizations Hx Diphtheria, Pertussis, Tetanus Vaccination: Yes Review of Systems - Review of Systems Constitutional: No symptoms reported EENT: No symptoms reported Cardiovascular: No symptoms reported Respiratory: No symptoms reported Gastrointestinal: No symptoms reported Musculoskeletal: No symptoms reported Skin: Lesions Hematologic/Lymphatic: No symptoms reported Neurological/Psychological: No symptoms reported -: Yes All other systems reviewed and negative Physical Exam - Vital signs Vitals: Temp Pulse Resp BP Pulse Ox 98.1 F 81 18 124/74 96 11/27/18 09:36 11/27/18 09:36 11/27/18 09:36 11/27/18 09:36 11/27/18 09:36 - Notes Notes: PHYSICAL EXAMINATION: GENERAL: Well-appearing, well-nourished and in no acute distress. HEAD: Atraumatic, normocephalic. EYES: Pupils equal round and reactive to light, extraocular movements intact, sclera anicteric, conjunctiva are normal. ENT: Nares patent, oropharynx clear without exudates. Moist mucous membranes. NECK: Normal range of motion, enlarged submental lymph node. Musculoskeletal: Normal range of motion. NEUROLOGICAL: Cranial nerves grossly intact. Normal speech, normal gait. Normal sensory, motor exams PSYCH: Normal mood, normal affect. SKIN: Warm, Dry, Nickel size area of induration to the Right chin. No fluctuance. Top of the area of induration is open secondary to the patient squeezing/digging into the area to obtain drainage. Course - Re-evaluation Re-evalutation: 11/27/18 10:14 Area of induration to the Right chin that the patient attempted to open by himself. No purulent drainage obtained per patient, only blood. Abscess currently opened. No fluctuance appreciated. Patient denies any dental pain, throat swelling, difficulty breathing, trismus, tongue elevation, stridor, drooling. I will start him on clindamycin. I instructed the patient to take the antibiotic as prescribed, to follow-up with a primary care physician or the ENT he was referred to for reevaluation, and to return to the emergency department if he begins having any fever, chills, enlargement of the abscess, difficulty breathing, difficulty swallowing, difficulty opening mouth. - Vital Signs Vital signs: Temp Pulse Resp BP Pulse Ox 98.1 F 81 18 124/74 96 11/27/18 09:36 11/27/18 09:36 11/27/18 09:36 11/27/18 09:36 11/27/18 09:36 Discharge - Discharge Clinical Impression: Abscess Condition: Good Disposition: HOME, SELF-CARE Instructions: Abscess ([facility]) Prescriptions: Clindamycin HCl [Cleocin 150 mg Capsule] 450 mg PO TID 10 Days #90 capsule Referrals: KATERINE HERNANDEZ MD [ACTIVE STAFF] - Follow up as needed LEANA SANDERS MD [ACTIVE STAFF] - Follow up as needed
== END 2018-11-27 10:29 | disposition home or self-care (01) ==
LOC: ER 09:30
DX: L02.01 Cutaneous abscess of face (principal); F17.200 Nicotine dependence, unspecified, uncomplicated; J45.909 Unspecified asthma, uncomplicated
CPT/HCPCS: 99283